=== PATIENT | female | born 1960 | race Two or more races ===

== ENCOUNTER 2024-06-26 02:30 | Inpatient (IN) | payer MEDICAID, OTHER ==
[~2024-06-26] VITALS: Ht 160 cm; Wt 24.4 kg
--- NOTE | 2024-06-26 03:04 | ED.PDOC ---
GI ASSESSMENT HPI Comments 63-year-old female with a history of gastric bypass brought in by EMS presents with a chief complaint of abdominal pain with associated nausea. Patient states that her abdominal pain is localized to her epigastric region, radiates to her backside, describes as sharp, and rates her pain a 10/10. Patient mentions that onset of symptoms began at 0100 this morning. Patient was given 100mcg Fentanyl and 4mg Zofran. Patient reports that after the Fentanyl, her pain went down to a 8/10. Chief Complaint: Abdominal Pain Time Seen by MD: 02:52 Reviewed Notes: Medications, Allergies Allergies: Coded Allergies: NO KNOWN ALLERGIES (Unverified , 06/26/24) Home Meds Reported Medications Ferrous Sulfate (Ferosul) 325 Mg Tab, 1 TAB PO DAILY 06/26/24 Bupropion Hcl (Bupropion Hcl Xl) 300 Mg Tab, 1 TAB PO DAILY 06/26/24 Venlafaxine Hcl (Venlafaxine Hcl Er) 75 Mg Cap, 1 CAP PO DAILY 06/26/24 Information Source: Patient, Emergency Med Personnel Mode of Arrival: EMS Timing: Hours Duration: Since onset Prehospital treatment: Data Specialist, Oxygen, Treatment (100mcg Fentanyl; 4mg Zofran) Quality: Sharp Vomitus: None Stool: Normal Severity: Moderate Recent: None Recent Hx of: None Pain Location: Epigastric Associated sign and symptoms: Nausea, Abdominal Pain Vital Signs Vital Signs Date Time Temp Pulse Resp B/P (MAP) Pulse Ox O2 Delivery O2 Flow Rate FiO2 06/26/24 06:18 73 27 112/62 (79) 100 06/26/24 04:04 98.9 98.9 Physical Exam General: Awake, alert and oriented. No acute distress. Skin: Skin in warm, dry and intact. Appropriate color for ethnicity. HEENT: The head is normocephalic and atraumatic. Conjunctivae are clear without exudates or hemorrhage. Sclera is non-icteric. EOM are intact. No signs of nystagmus. Eyelids are normal in appearance without swelling or lesions. Oral mucosa is pink and moist Neck: The neck is supple with normal range of motion. No JVD. Cardiac: Heart rate and rhythm are normal. No murmurs, gallops, or rubs are auscultated. Respiratory: No signs of respiratory distress. Lung sounds are clear in all lobes bilaterally without rales, rhonchi, or wheezes. Abdominal: Abdomen is soft, epigastric and right upper quadrant without distention. Positive voluntary guarding. Bowel sounds are present and normoactive in all four quadrants. Extremities: Upper and lower extremities are atraumatic in appearance without deformity or edema. Neurological: The patient is awake, alert and oriented to person, place, and time with normal speech. Speech is clear. There is no facial asymmetry. Review of Systems: REVIEW OF SYSTEMS: No fever, no chills, or fatigue HEENT: No sore throat, no earache, no congestion, no neck pain. Cardiac: Positive chest pain. No palpitations. Lungs: Positive shortness of breath, no cough. GI: Positive nausea, no vomiting, no diarrhea, no constipation, positive abdominal pain : No dysuria, frequency, or urgency. No hematuria. Musculoskeletal: No joint pain , no joint swelling, no extremity edema. Skin: No rash, no itching. Neuro: No headache, no dizziness, no weakness Past Medical History PAST MEDICAL HISTORY: Denies Surgical History: Cholecystectomy Surgical History (Other): Gastric Bypass MANAGER EMERGENCY DEPARTMENT History: Denies all MANAGER EMERGENCY DEPARTMENT Hx Family History Family History: Reviewed,noncontributory to illness Social History Smoker: Non-Smoker Alcohol: Denies ETOH Use Drugs: Denies Drug Use Lives In: Home Was a procedure done? Was a procedure done?: No GI differential Dx Differential Diagnosis: Other Other Differential Diagnosis Differential diagnoses considered include: Abdominal aortic aneurysm, MS, esophageal rupture, intestinal obstruction, mesenteric ischemia, perforated viscus or solid organ rupture, CHF with hepatomegaly, pneumonia, abscess, appendicitis, biliary disease, diverticulitis, gastritis, gastroenteritis, hepatitis, hernia, inflammatory bowel disease, pancreatitis, peptic ulcer disease, urinary tract infection, ureteral colic, constipation, GERD, irritable syndrome, abdominal wall pain, nonspecific abdominal pain, herpes zoster. X-Ray, Labs, Meds, VS Vital Signs Date Time Temp Pulse Resp B/P (MAP) Pulse Ox O2 Delivery O2 Flow Rate FiO2 06/26/24 06:18 73 27 112/62 (79) 100 06/26/24 05:14 72 12 125/72 06/26/24 04:04 98.9 71 17 126/63 (84) 98 98.9 06/26/24 03:32 73 26 126/63 06/26/24 02:39 98.8 107 24 131/69 (89) 98 98.8 06/26/24 02:36 58 Lab Test 06/26/24 04:00 06/26/24 03:05 Range/Units Urine Color Light-yellow Yellow Urine Clarity Clear Clear Urine pH 7.0 5.0-9.0 Urine Specific [place] 1.040 H 1.001-1.035 Urine Protein Negative Negative Urine Ketones 1+ H Negative Urine Blood Negative Negative /uL Urine Nitrite Negative Negative Urine Bilirubin Negative Negative Urine Urobilinogen Normal Negative mg/dL Urine Leukocyte Esterase Negative Negative /uL Urine RBC 2 0 - 4 /hpf Urine Microscopic WBC 1 0-5 /HPF Urine Squamous Epithelial Cells Few <5 /hpf Urine Bacteria None seen None Seen /hpf Urine Mucus Few None Seen Urine Glucose Normal Normal mg/dL White Blood Count 5.3 4.4-10.8 10^3/uL Red Blood Count 4.07 4.0-5.20 10^6/uL Hemoglobin 10.4 L 12.2-16.2 g/dL Hematocrit 32.3 L 36.0-46.0 % Mean Corpuscular Volume 79.4 L 80.0-100.0 fL Mean Corpuscular Hemoglobin 25.6 L 28.0-32.0 pg Mean Corpuscular Hemoglobin Concent 32.2 32.0-36.0 g/dL Red Cell Distribution Width 24.7 H 11.8-14.3 % Platelet Count 307 140-450 10^3/uL Mean Platelet Volume 6.7 L 6.9-10.8 fL Neutrophils (%) (Auto) 61.2 37.0-80.0 % Lymphocytes (%) (Auto) 30.1 10.0-50.0 % Monocytes (%) (Auto) 6.5 0.0-12.0 % Eosinophils (%) (Auto) 1.7 0.0-7.0 % Basophils (%) (Auto) 0.5 0.0-2.0 % Neutrophils # (Auto) 3.2 1.6-8.6 10 ^3/uL Lymphocytes # (Auto) 1.6 0.4-5.4 10 ^3/uL Monocytes # (Auto) 0.3 0-1.3 10 ^3/uL Eosinophils # (Auto) 0.1 0-0.8 10 ^3/uL Basophils # (Auto) 0 0-0.2 10 ^3/uL Nucleated Red Blood Cells 0.0 % Sodium Level 144 136-145 mmol/L Potassium Level 4.9 3.5-5.1 mmol/L Chloride Level 108 H 98-107 mmol/L Carbon Dioxide Level 29 20-31 mmol/L Anion Gap 7 5-15 Blood Urea Nitrogen 20 9-23 mg/dL Creatinine 0.55 0.550-1.02 mg/dL Glomerular Filtration Rate Calc 104 >90 mL/min BUN/Creatinine Ratio 36.4 H 10.0-20.0 Serum Glucose 186 H 74-106 mg/dL Hemoglobin A1c 5.0 <5.7 % A1C Lactic Acid Level 1.6 0.4-2.0 mmol/L Calcium Level 9.6 8.7-10.4 mg/dL Total Bilirubin 0.3 0.2-1.0 mg/dL Aspartate Amino Transferase (AST) 19 13-40 U/L Alanine Aminotransferase (ALT) 26 7-40 U/L Alkaline Phosphatase 46 46-116 U/L Troponin I High Sensitivity 5 </=34 ng/L Total Protein 6.3 5.7-8.2 g/dL Albumin 4.4 3.2-4.8 g/dL Amylase Level 60 30-118 U/L Lipase 87 H 12-53 U/L Current Medications Medications (Trade) Dose Ordered Sig/Mami Route Start Time Stop Time Status Last Admin Morphine Sulfate 2 mg ONCE ONCE IV 06/26/24 03:00 06/26/24 03:01 DC 06/26/24 03:32 Sodium Chloride 1,000 ml @ 1,000 mls/hr Q1H ONCE IV 06/26/24 04:00 06/26/24 04:59 DC 06/26/24 04:03 Time of 1ST Reevaluation: 03:22 Reevaluation 1ST: Unchanged Patient Education/Counseling: Need For Follow Up Family Education/Counseling: No Family Present Departure 1 Departure Time of Disposition: 06:05 Impression: Primary Impression: Abdominal pain Disposition: ADMITTED INPATIENT Condition: Stable Comments Patient admitted to hospitalist service for further treatment, evaluation and monitoring. Critical Care Note Critical Care Time?: No Stability Stability form required: No Heart Score Heart Score: Heart Score Response (Comments) Value History N/A 0 EKG N/A 0 Age N/A 0 Risk Factors N/A 0 Troponin N/A 0 Total 0 I personally scribed for MARIA DEL ROSARIO FLOWERS MD ([email or web address]) on 06/26/24 at 03:04. Electronically submitted by Dirk Last ([email or web address]). MARIA DEL ROSARIO FLOWERS MD June 26, 2024 03:04
[2024-06-26] MEDS: IOHEXOL 300 MG/ML 100ML BOTTLE IJ ONE (03:17)
[2024-06-26 03:22] LABS: Basophils # (auto) 0 10 ^3/uL (0-0.2); Basophils % (auto) 0.5 % (0.0-2.0); Eosinophils # (auto) 0.1 10 ^3/uL (0-0.8); Eosinophils % (auto) 1.7 % (0.0-7.0); Hematocrit 32.3 % (36.0-46.0); Hemoglobin 10.4 g/dL (12.2-16.2); Lymphocytes # (auto) 1.6 10 ^3/uL (0.4-5.4); Lymphocytes % (auto) 30.1 % (10.0-50.0); Mean Corpuscular Hemoglobin 25.6 pg (28.0-32.0); Mean Corpuscular Hgb Conc. 32.2 g/dL (32.0-36.0); Mean Corpuscular Volume 79.4 fL (80.0-100.0); Monocytes # (auto) 0.3 10 ^3/uL (0-1.3); Monocytes % (auto) 6.5 % (0.0-12.0); Neutrophils # (auto) 3.2 10 ^3/uL (1.6-8.6); Neutrophils % (auto) 61.2 % (37.0-80.0); Platelet Count (auto) 307 10^3/uL (140-450); Red Blood Cells 4.07 10^6/uL (4.0-5.20); Red Cell Distribution Width 24.7 % (11.8-14.3); White Blood Cell 5.3 10^3/uL (4.4-10.8)
[2024-06-26] MEDS: MORPHINE SULFATE INJ 2 MG/ml SYRG IV ONE (03:32)
[2024-06-26 03:33] LABS: Alanine Aminotransferase 26 U/L (7-40); Albumin 4.4 g/dL (3.2-4.8); Alkaline Phosphatase 46 U/L (46-116); Anion Gap 7 (5-15); Aspartate Aminotransferase 19 U/L (13-40); BUN/Creatinine Ratio 36.4 (10.0-20.0); Blood Urea Nitrogen 20 mg/dL (9-23); Calcium 9.6 mg/dL (8.7-10.4); Carbon Dioxide 29 mmol/L (20-31); Potassium 4.9 mmol/L (3.5-5.1); Sodium 144 mmol/L (136-145); Total Protein 6.3 g/dL (5.7-8.2)
[2024-06-26 03:35] LABS: Bilirubin, Total 0.3 mg/dL (0.2-1.0); Chloride 108 mmol/L (98-107); Glucose 186 mg/dL (74-106); Lipase 87 U/L (12-53)
[2024-06-26] MEDS: SODIUM CHLORIDE 0.9% 1,000 ML IV ONE ×2 (04:03→17:59)
--- NOTE | 2024-06-26 05:51 | DVH ---
EXAM: CT Abdomen and Pelvis With Intravenous Contrast CLINICAL INDICATION: Abdominal pain, history gastric bypass TECHNIQUE: Axial computed tomography images of the abdomen and pelvis with intravenous contrast. is CT exam was performed using one or more of the following dose reduction techniques: automated exp osure control, adjustment of the mA and/or kV according to patient size, and/or use of iterative skye nstruction technique. CONTRAST: COMPARISON: None FINDINGS: ARTIFACTS: Motion artifact. LUNG BASES: Unremarkable. No mass. No consolidation. MEDIASTINUM: Small esophageal hiatal hernia. ABDOMEN: LIVER: Fatty infiltration of the liver. GALLBLADDER AND BILE DUCTS: Gallbladder is surgically absent. No ductal dilation. PANCREAS: Unremarkable. No mass. No ductal dilation. SPLEEN: Unremarkable. No splenomegaly. ADRENALS: Unremarkable. No mass. KIDNEYS AND URETERS: Unremarkable. No solid mass. No hydronephrosis. STOMACH AND BOWEL: Fecal retention in the colon consistent with constipation. No obstruction. No mucosal thickening. PELVIS: APPENDIX: No findings to suggest acute appendicitis. BLADDER: Unremarkable. No mass. REPRODUCTIVE: Unremarkable as visualized. ABDOMEN and PELVIS: INTRAPERITONEAL SPACE: Unremarkable. No free air. No significant fluid collection. BONES/JOINTS: No acute fracture. No dislocation. SOFT TISSUES: Unremarkable. VASCULATURE: Unremarkable. No abdominal aortic aneurysm. LYMPH NODES: Unremarkable. No enlarged lymph nodes. OTHER FINDINGS: . . IMPRESSION: 1. Small esophageal hiatal hernia. 2. Fecal retention in the colon consistent with constipation.
--- NOTE | 2024-06-26 07:04 | ECG ---
[facility] Test Date: 2024-06-26 Test Time: 02:36:58 Pat Name: KENNEY PONCE Department: ED Room: 0277 Gender: F [employer]: CAT[place] : 1960 Requested By: MARIA DEL ROSARIO FLOWERS Order Number: [id number] Reading MD: Nathan Cardenas Measurements Intervals [place] Rate: 58 P: 60 [place]: 160 QRS: 23 QRSD: 137 T: 63 QT: 457 QTc: 449 Interpretive Statements Sinus rhythm Nonspecific intraventricular conduction delay Borderline T abnormalities, anterior leads Electronically Signed On 06-27-2024 21:13:19 PDT by Nathan Cadrenas Please click the below link to view image of tracing.
[2024-06-26] MEDS ORDERED: MORPHINE SULFATE INJ 2 MG/ml SYRG IV PRN (07:15)
[2024-06-26] MEDS ORDERED: HYDROcodone-ACET 5/325MG TAB PO PRN (07:15)
[2024-06-26] MEDS ORDERED: DOCUSATE SOD 100 MG CAP PO PRN (07:15)
[2024-06-26] MEDS ORDERED: ONDANSETRON HCL 4 MG/2 ML VIAL IV PRN (07:15)
[2024-06-26] MEDS ORDERED: VENL75CA78 PO (07:27)
[2024-06-26] MEDS ORDERED: BUPR-581 PO (07:27)
[2024-06-26] MEDS ORDERED: FERR325T20 PO (07:27)
[2024-06-26 07:47] LABS: Urine Bacteria None Seen /hpf (None Seen)
--- NOTE | 2024-06-26 08:05 | DVHHP2 ---
History of Present Illness Reason for Visit: Abdominal Pain History of Present Illness Janice Mcknight is a 63-year-old female with past medical history of depression, who came in with complaints of abdominal pain. Patient states she had an episode yesterday of epigastric pain, then it subsided. This morning the pain returned while she was resting in bed. She states the pain was a 10/10 with associated nausea and nothing made it any better prompting her to call EMS. Psych: Depression Past Surgical History: Cholecystectomy, Hysterectomy, Other (Gastric bypass) Smoke: No ALCOHOL: none Drugs: None Lives: with Family Domestic Violence: Neg Review of Systems Constitutional: No: Fever, Chills, Sweats, Weakness, Malaise, Other Eyes: No: Pain, Vision change, Conjunctivae inflammation, Eyelid inflammation, Other, Redness ENT: No: Ear pain, Ear discharge, Nose pain, Nose discharge, Nose congestion, Mouth pain, Mouth swelling, Throat pain, Throat swelling, Other Respiratory: No: Cough, Dry, Shortness of breath, SOB with excertion, Wheezing, Hemoptysis, Pleuritic Pain, Sputum, Wheezing, Other Cardiovascular: No: Chest Pain, Palpitations, Orthopnea, Paroxysmal Noc. Dyspnea, Edema, Lt Headedness, Other Gastrointestinal: Nausea, Abdominal Pain; No: Vomiting, Diarrhea, Constipation, Melena, Hematochezia, Other Genitourinary: No Dysuria, No Frequency, No Incontinence, No Hematuria, No Retention, No Other Musculoskeletal: No: other, neck pain, shoulder pain, arm pain, back pain, hand pain, leg pain, foot pain Skin: No: Rash, Lesions, Jaundice, Bruising, Other Neurological: No: Weakness, Numbness, Incoordination, Change in speech, Confusion, Seizures, Other Allergies: Coded Allergies: NO KNOWN ALLERGIES (Unverified , 06/26/24) Medications Current Medications Medications Dose Ordered Sig/Mami Route Start Time Stop Time Status Last Admin Dose Admin Acetaminophen/ Hydrocodone Bitart 1 tab Q4HP PRN PO 06/26/24 07:15 UNV Ondansetron HCl 4 mg Q4HP PRN IV 06/26/24 07:15 UNV Docusate Sodium 100 mg BIDPRN PRN PO 06/26/24 07:15 UNV Acetaminophen 650 mg Q6HP PRN PO 06/26/24 07:15 UNV Morphine Sulfate 2 mg Q4HPRN PRN IV 06/26/24 07:15 UNV Sodium Chloride 1,000 ml @ 100 mls/hr Q10H IV 06/26/24 07:30 UNV Patient Own Medication 1 tab DAILY PO 06/26/24 10:00 UNV Patient Own Medication 1 tab DAILY PO 06/26/24 10:00 UNV Patient Own Medication 1 cap DAILY PO 06/26/24 10:00 UNV Exam Vital Signs Vital Signs Date Time Temp Pulse Resp B/P (MAP) Pulse Ox O2 Delivery O2 Flow Rate FiO2 06/26/24 06:18 73 27 112/62 (79) 100 06/26/24 04:04 98.9 98.9 General Appearance: Alert, Oriented X3, Cooperative, mild distress HEENT: Atraumatic, PERRLA Respiratory: Clear to auscultation, Normal air movement Cardiovascular: Regular rate, Normal S1, Normal S2 Abdominal: Normal bowel sounds, Soft, No hepatospenomegaly, Other (tenderness on palpitation) Extremities: No clubbing, No cyanosis, No edema, Normal pulses Skin: No rashes, No breakdown, No significant lesion Neuro: Normal gait, Normal speech, Strength at 5/5 X4 ext Psych/Mental Status: Mental status NL, Mood NL Labs/Xrays Labs Test 06/26/24 03:05 Range/Units White Blood Count 5.3 4.4-10.8 10^3/uL Red Blood Count 4.07 4.0-5.20 10^6/uL Hemoglobin 10.4 L 12.2-16.2 g/dL Hematocrit 32.3 L 36.0-46.0 % Mean Corpuscular Volume 79.4 L 80.0-100.0 fL Mean Corpuscular Hemoglobin 25.6 L 28.0-32.0 pg Mean Corpuscular Hemoglobin Concent 32.2 32.0-36.0 g/dL Red Cell Distribution Width 24.7 H 11.8-14.3 % Platelet Count 307 140-450 10^3/uL Mean Platelet Volume 6.7 L 6.9-10.8 fL Neutrophils (%) (Auto) 61.2 37.0-80.0 % Lymphocytes (%) (Auto) 30.1 10.0-50.0 % Monocytes (%) (Auto) 6.5 0.0-12.0 % Eosinophils (%) (Auto) 1.7 0.0-7.0 % Basophils (%) (Auto) 0.5 0.0-2.0 % Neutrophils # (Auto) 3.2 1.6-8.6 10 ^3/uL Lymphocytes # (Auto) 1.6 0.4-5.4 10 ^3/uL Monocytes # (Auto) 0.3 0-1.3 10 ^3/uL Eosinophils # (Auto) 0.1 0-0.8 10 ^3/uL Basophils # (Auto) 0 0-0.2 10 ^3/uL Nucleated Red Blood Cells 0.0 % Sodium Level 144 136-145 mmol/L Potassium Level 4.9 3.5-5.1 mmol/L Chloride Level 108 H 98-107 mmol/L Carbon Dioxide Level 29 20-31 mmol/L Anion Gap 7 5-15 Blood Urea Nitrogen 20 9-23 mg/dL Creatinine 0.55 0.550-1.02 mg/dL Glomerular Filtration Rate Calc 104 >90 mL/min BUN/Creatinine Ratio 36.4 H 10.0-20.0 Serum Glucose 186 H 74-106 mg/dL Lactic Acid Level 1.6 0.4-2.0 mmol/L Calcium Level 9.6 8.7-10.4 mg/dL Total Bilirubin 0.3 0.2-1.0 mg/dL Aspartate Amino Transferase (AST) 19 13-40 U/L Alanine Aminotransferase (ALT) 26 7-40 U/L Alkaline Phosphatase 46 46-116 U/L Troponin I High Sensitivity 5 </=34 ng/L Total Protein 6.3 5.7-8.2 g/dL Albumin 4.4 3.2-4.8 g/dL Amylase Level 60 30-118 U/L Lipase 87 H 12-53 U/L EXAM: CT Abdomen and Pelvis With Intravenous Contrast FINDINGS: ARTIFACTS: Motion artifact. LUNG BASES: Unremarkable. No mass. No consolidation. MEDIASTINUM: Small esophageal hiatal hernia. ABDOMEN: LIVER: Fatty infiltration of the liver. GALLBLADDER AND BILE DUCTS: Gallbladder is surgically absent. No ductal dilation. PANCREAS: Unremarkable. No mass. No ductal dilation. SPLEEN: Unremarkable. No splenomegaly. ADRENALS: Unremarkable. No mass. KIDNEYS AND URETERS: Unremarkable. No solid mass. No hydronephrosis. STOMACH AND BOWEL: Fecal retention in the colon consistent with constipation. No obstruction. No mucosal thickening. PELVIS: APPENDIX: No findings to suggest acute appendicitis. BLADDER: Unremarkable. No mass. REPRODUCTIVE: Unremarkable as visualized. ABDOMEN and PELVIS: INTRAPERITONEAL SPACE: Unremarkable. No free air. No significant fluid collection. BONES/JOINTS: No acute fracture. No dislocation. SOFT TISSUES: Unremarkable. VASCULATURE: Unremarkable. No abdominal aortic aneurysm. LYMPH NODES: Unremarkable. No enlarged lymph nodes. OTHER FINDINGS: . . IMPRESSION: 1. Small esophageal hiatal hernia. 2. Fecal retention in the colon consistent with constipation. Assessment/Plan Assessment/Plan Assessment: Pancreatitis, Hiatal hernia, Constipation, Hyperglycemia, Anemia, Depression, Plan: Admit to Med-Surg, IV hydration, Pain management, NPO except ice chips, Home medications reconciled, Plan discussed with: Patient, Daughter My Orders Orders - ARLENE CASTILLO Procedure Category Date Status Time Admit ADMIT 06/26/24 Transmitted 07:01 Code Status CODE 06/26/24 Transmitted 07:01 Hydrocodone-Acet PHA 06/26/24 Logged 5/325mg Tab ([place] 07:15 Ondansetron Hcl PHA 06/26/24 Logged (Zofran) 07:15 Docusate Sodium PHA 06/26/24 Logged Capsule ([place] 07:15 Complete Blood Count LAB 06/27/24 Verified 04:00 Comprehensive LAB 06/27/24 Verified Metabolic Panel 04:00 Npo (Nothing By DIET 06/26/24 Transmitted Mouth) Diet Breakfast Condition: Serious ARIANA 06/26/24 In Process 07:01 Acetaminophen Tablet PHA 06/26/24 Logged (Tylenol Tablet) 07:15 Morphine Sulfate PHA 06/26/24 Logged Injection 07:15 Sodium Chloride 0.9% PHA 06/26/24 Logged 07:30 Sodium Chloride 0.9% PHA 06/26/24 Logged 07:30 (Nf) Bupropion Hcl PHA 06/26/24 Logged (Bupropion Hcl Xl) 10:00 (Nf) Ferrous Sulfate PHA 06/26/24 Logged (Ferosul) 10:00 (Nf) Venlafaxine Hcl PHA 06/26/24 Logged (Venlafaxine Hcl Er 10:00 Date of Service: June 26, 2024 Billing Provider: SCHWING,ARLENE R LIDAR SCIENTIST Common Visit Codes: [id number] INP/OBS CARE (MOD) ARLENE CASTILLO LIDAR SCIENTIST June 26, 2024 08:05
[2024-06-26 08:10] LABS: Urine Blood Negative /uL (Negative); Urine Clarity Clear (Clear); Urine Color Light-Yellow (Yellow); Urine Mucus FEW (None Seen); Urine Protein, UAD Negative (Negative); Urine Squamous Epithelial Cell FEW /hpf (<5); Urine Urobilinogen Normal (Negative); Urine WBC 1 /HPF (0-5)
[2024-06-26 09:27] VITALS: PULSE 75; RESP 18; O2SAT 95
[2024-06-26] MEDS ORDERED: LACTULOSE 20Gm/30ML SOLN PO PRN (09:45)
[2024-06-26 10:00] VITALS: BP 134/60; PULSE 75; RESP 18; TEMP 98; O2SAT 95
[2024-06-26] MEDS: BUPROPION HCL 300 MG PO SCH (10:00)
[2024-06-26] MEDS: FERROUS SULFATE 325mg EC TAB PO SCH (10:12)
[2024-06-26] MEDS: ACETAMINOPHEN 325 MG TAB PO PRN (10:12)
[2024-06-26] MEDS: PANTOPRAZOLE 40 MG/10 ML VIAL INJ IV ONE (11:30)
[2024-06-26 13:00] VITALS: BP 127/57; PULSE 84; RESP 18; TEMP 98; O2SAT 96
--- NOTE | 2024-06-26 13:28 | DVHPN2 ---
Subjective 63-year-old female past medical history of depression came with abdominal pain since this morning with some nausea and vomiting Changes from previous H/P or p: Changes Eyes: No Pain, No Vision change, No Conjunctivae inflammation, No Eyelid inflammation, No Other, No Redness ENT: No Ear pain, No Ear discharge, No Nose pain, No Nose discharge, No Nose congestion, No Mouth pain, No Mouth swelling, No Throat pain, No Throat swelling, No Other Cardiovascular: No Chest Pain, No Palpitations, No Orthopnea, No Paroxysmal Noc. Dyspnea, No Edema, No Lt Headedness, No Other Respiratory: No Cough, No Dry, No Shortness of breath, No SOB with excertion, No Wheezing, No Hemoptysis, No Pleuritic Pain, No Sputum, No Other Gastrointestinal: Nausea; No Vomiting; Abdominal Pain; No Diarrhea, No Constipation, No Melena, No Hematochezia, No Other Genitourinary: No Dysuria, No Frequency, No Incontinence, No Hematuria, No Retention, No Other Musculoskeletal: No other, No neck pain, No shoulder pain, No arm pain, No back pain, No hand pain, No leg pain, No foot pain Skin: No Rash, No Lesions, No Jaundice, No Bruising, No Other Objective Vitals Vital Signs Date Time Temp Pulse Resp B/P (MAP) Pulse Ox O2 Delivery O2 Flow Rate FiO2 06/26/24 10:12 98.0 06/26/24 09:27 75 18 95 Room Air* 0 21 06/26/24 08:00 131/57 (81) Intake/Output Intake and Output 06/26/24 07:00 Intake Total 1000 ml Balance 1000 ml Intake IV Total 1000 ml General Appearance: Alert, Oriented X3, Cooperative Lungs: Clear to auscultation, Normal air movement Cardiovascular: Regular rate, Normal S1, Normal S2, No murmurs Abdomen: Normal bowel sounds, Soft, No tenderness Extremities: No edema Medications Current Medications Medications Dose Ordered Sig/Mami Route Start Time Stop Time Status Last Admin Dose Admin Acetaminophen/ Hydrocodone Bitart 1 tab Q4HP PRN PO 06/26/24 07:15 Ondansetron HCl 4 mg Q4HP PRN IV 06/26/24 07:15 Docusate Sodium 100 mg BIDPRN PRN PO 06/26/24 07:15 Acetaminophen 650 mg Q6HP PRN PO 06/26/24 07:15 06/26/24 10:12 650 MG Morphine Sulfate 2 mg Q4HPRN PRN IV 06/26/24 07:15 Sodium Chloride 1,000 ml @ 100 mls/hr Q10H IV 06/26/24 07:30 Patient Own Medication 1 tab DAILY PO 06/26/24 10:00 Ferrous Sulfate 325 mg DAILY@0800 PO 06/26/24 08:00 06/26/24 10:12 325 MG Venlafaxine HCl 75 mg HS PO 06/26/24 22:00 Lactulose 30 ml DAILYPRN PRN PO 06/26/24 09:45 Pantoprazole Sodium 40 mg DAILY IV 06/27/24 10:00 Laboratory Results Laboratory Tests 06/26/24 03:05 Chemistry Test 06/26/24 03:05 Albumin 4.4 g/dL (3.2-4.8) Calcium Level 9.6 mg/dL (8.7-10.4) Total Protein 6.3 g/dL (5.7-8.2) Lipid panel Test 06/26/24 03:05 Lipase 87 U/L (12-53) H LFT Test 06/26/24 03:05 Alanine Aminotransferase (ALT) 26 U/L (7-40) Alkaline Phosphatase 46 U/L (46-116) Aspartate Amino Transferase (AST) 19 U/L (13-40) Total Bilirubin 0.3 mg/dL (0.2-1.0) HgA1c, TSH Test 06/26/24 03:05 Hemoglobin A1c 5.0 % A1C (<5.7) Urinalysis Test 06/26/24 04:00 Urine Color Light-yellow (Yellow) Urine Clarity Clear (Clear) Urine pH 7.0 (5.0-9.0) Urine Specific [place] 1.040 (1.001-1.035) Urine Protein Negative (Negative) Urine Ketones 1+ (Negative) H Urine Blood Negative /uL (Negative) Urine Nitrite Negative (Negative) Urine Bilirubin Negative (Negative) Urine Urobilinogen Normal mg/dL (Negative) Urine Leukocyte Esterase Negative /uL (Negative) Urine RBC 2 /hpf (0 - 4) Urine Microscopic WBC 1 /HPF (0-5) Urine Squamous Epithelial Cells Few /hpf (<5) Urine Bacteria None seen /hpf (None Seen) Urine Mucus Few (None Seen) Urine Glucose Normal mg/dL (Normal) Assessment/Plan Assessment/Plan Abdominal pain Most likely GERD or gastritis ? Pancreatitis Constipation History of depression Hiatal hernia Plan Start clear liquid diet Protonix IV IV fluids Monitor closely in the hospital Full code Advance directives discussed for 17 minutes Plan discussed with: Patient My Orders Orders - MICAH VIEYRA MD Procedure Category Date Status Time Clear Liq Diet DIET 06/26/24 Transmitted Lunch Pantoprazole PHA 06/27/24 In Process (Protonix) 10:00 Date of Service: June 26, 2024 Billing Provider: MICAH VIEYRA MD Common Visit Codes: [id number] INP/OBS CARE(HIGH) Secondary Visit Codes: [id number] CARE PLAN 30 MINUTES MICAH VIEYRA MD June 26, 2024 13:28
[2024-06-26 17:00] VITALS: BP 119/56; PULSE 85; RESP 20; TEMP 99.1; O2SAT 94
[2024-06-26] MEDS: SODIUM CHLORIDE 0.9% 1,000 ML IV SCH (17:30)
[2024-06-26 20:00] VITALS: PULSE 87; RESP 17; O2SAT 95
[2024-06-26 21:00] VITALS: BP 113/49; PULSE 87; RESP 17; TEMP 98.5; O2SAT 95
[2024-06-26] MEDS: VENLAFAXINE HCL 37.5mg XR cap PO SCH (22:00)
[2024-06-27 05:00] VITALS: BP 106/41; PULSE 68; RESP 17; TEMP 98.6; O2SAT 98
[2024-06-27 06:14] LABS: Basophils # (auto) 0 10 ^3/uL (0-0.2); Eosinophils # (auto) 0 10 ^3/uL (0-0.8); Hematocrit 27.1 % (36.0-46.0); Hemoglobin 8.9 g/dL (12.2-16.2); Mean Corpuscular Hemoglobin 26.1 pg (28.0-32.0); Monocytes # (auto) 0.3 10 ^3/uL (0-1.3); Red Blood Cells 3.42 10^6/uL (4.0-5.20)
[2024-06-27 06:19] LABS: Basophils % (auto) 0.5 % (0.0-2.0); Eosinophils % (auto) 0.8 % (0.0-7.0); Lymphocytes # (auto) 0.9 10 ^3/uL (0.4-5.4); Lymphocytes % (auto) 24.6 % (10.0-50.0); Mean Corpuscular Volume 79.2 fL (80.0-100.0); Neutrophils # (auto) 2.5 10 ^3/uL (1.6-8.6); Neutrophils % (auto) 65.1 % (37.0-80.0); Nucleated Red Blood Cells % 0.3 %; Platelet Count (auto) 219 10^3/uL (140-450); Red Cell Distribution Width 24.8 % (11.8-14.3); White Blood Cell 3.9 10^3/uL (4.4-10.8)
[2024-06-27 06:29] LABS: Alanine Aminotransferase 22 U/L (7-40); Albumin 3.5 g/dL (3.2-4.8); Anion Gap 8 (5-15); Aspartate Aminotransferase 19 U/L (13-40); Blood Urea Nitrogen 10 mg/dL (9-23); Carbon Dioxide 27 mmol/L (20-31); Glucose 83 mg/dL (74-106); Lipase 38 U/L (12-53); Potassium 3.8 mmol/L (3.5-5.1); Sodium 145 mmol/L (136-145)
[2024-06-27 06:30] LABS: Bilirubin, Total 0.4 mg/dL (0.2-1.0)
[2024-06-27 06:37] LABS: Alkaline Phosphatase 35 U/L (46-116); Calcium 8.6 mg/dL (8.7-10.4); Chloride 110 mmol/L (98-107); Total Protein 5.2 g/dL (5.7-8.2)
[2024-06-27 08:10] VITALS: RESP 16; O2SAT 95
[2024-06-27 09:00] VITALS: BP 132/60; PULSE 67; RESP 18; TEMP 99.6; O2SAT 97
[2024-06-27] MEDS: PANTOPRAZOLE 40 MG/10 ML VIAL INJ IV SCH (09:23)
[2024-06-27] MEDS ORDERED: PANT40TA2 PO (11:59)
--- NOTE | 2024-06-27 12:01 | DVHDS2 ---
Discharge Summary Date of Admission June 26, 2024 at 07:01 Date of Discharge: June 27, 2024 Labs/Diagnostic Data: Laboratory Results Test 06/27/24 05:05 06/26/24 04:00 06/26/24 03:05 White Blood Count 3.9 10^3/uL (4.4-10.8) Red Blood Count 3.42 10^6/uL (4.0-5.20) Hemoglobin 8.9 g/dL (12.2-16.2) Hematocrit 27.1 % (36.0-46.0) Mean Corpuscular Volume 79.2 fL (80.0-100.0) Mean Corpuscular Hemoglobin 26.1 pg (28.0-32.0) Mean Corpuscular Hemoglobin Concent 33.0 g/dL (32.0-36.0) Red Cell Distribution Width 24.8 % (11.8-14.3) Platelet Count 219 10^3/uL (140-450) Mean Platelet Volume 7.0 fL (6.9-10.8) Neutrophils (%) (Auto) 65.1 % (37.0-80.0) Lymphocytes (%) (Auto) 24.6 % (10.0-50.0) Monocytes (%) (Auto) 9.0 % (0.0-12.0) Eosinophils (%) (Auto) 0.8 % (0.0-7.0) Basophils (%) (Auto) 0.5 % (0.0-2.0) Neutrophils # (Auto) 2.5 10 ^3/uL (1.6-8.6) Lymphocytes # (Auto) 0.9 10 ^3/uL (0.4-5.4) Monocytes # (Auto) 0.3 10 ^3/uL (0-1.3) Eosinophils # (Auto) 0 10 ^3/uL (0-0.8) Basophils # (Auto) 0 10 ^3/uL (0-0.2) Nucleated Red Blood Cells 0.3 % Sodium Level 145 mmol/L (136-145) Potassium Level 3.8 mmol/L (3.5-5.1) Chloride Level 110 mmol/L (98-107) Carbon Dioxide Level 27 mmol/L (20-31) Anion Gap 8 (5-15) Blood Urea Nitrogen 10 mg/dL (9-23) Creatinine 0.40 mg/dL (0.550-1.02) Glomerular Filtration Rate Calc 113 mL/min (>90) BUN/Creatinine Ratio 25.0 (10.0-20.0) Serum Glucose 83 mg/dL (74-106) Calcium Level 8.6 mg/dL (8.7-10.4) Total Bilirubin 0.4 mg/dL (0.2-1.0) Aspartate Amino Transferase (AST) 19 U/L (13-40) Alanine Aminotransferase (ALT) 22 U/L (7-40) Alkaline Phosphatase 35 U/L (46-116) Total Protein 5.2 g/dL (5.7-8.2) Albumin 3.5 g/dL (3.2-4.8) Lipase 38 U/L (12-53) Urine Color Light-yellow (Yellow) Urine Clarity Clear (Clear) Urine pH 7.0 (5.0-9.0) Urine Specific [place] 1.040 (1.001-1.035) Urine Protein Negative (Negative) Urine Ketones 1+ (Negative) Urine Blood Negative /uL (Negative) Urine Nitrite Negative (Negative) Urine Bilirubin Negative (Negative) Urine Urobilinogen Normal mg/dL (Negative) Urine Leukocyte Esterase Negative /uL (Negative) Urine RBC 2 /hpf (0 - 4) Urine Microscopic WBC 1 /HPF (0-5) Urine Squamous Epithelial Cells Few /hpf (<5) Urine Bacteria None seen /hpf (None Seen) Urine Mucus Few (None Seen) Urine Glucose Normal mg/dL (Normal) Hemoglobin A1c 5.0 % A1C (<5.7) Lactic Acid Level 1.6 mmol/L (0.4-2.0) Troponin I High Sensitivity 5 ng/L (</=34) Amylase Level 60 U/L (30-118) Other Laboratory Tests 06/27/24 05:05 Brief Hx & Hospital Course: Final diagnoses: Abdominal pain due to GERD GERD Constipation Depression Hiatal hernia 63-year-old female with a history of gastric bypass surgery in the past came with a chief chief complaint of abdominal pain which was in the epigastric area She was suspected of having pancreatitis however her lipase was with a normal She was treated with a PPIs and she improved quickly Overnight she is doing well and asymptomatic now and therefore she can be discharged home on Protonix 40 mg p.o. daily and follow up as an outpatient. She is scheduled to have a referral to GI for upper and lower endoscopies as an outpatient so she should follow up as scheduled Condition at Discharge: Stable Final Diagnosis/Problems List Abdominal pain most likely due to GERD GERD Discharge Disposition: Home SNF Discharge Will this Physician continue t: No Discharge Instruct/Medications Diet: Cardiac 2g Na,low cholest Activity: No Restrictions, As Tolerated Follow Up/Referral: PCP as soon as possible Medications: Protonix 40 mg p.o. daily Discharge Statement: "Patient was advised to return to the ER or call 911 if any headaches, dizziness, shortness of breath, chest pain, abdominal pain, bleeding, fevers, or worsening of medical condition. Patient was counseled about treatment plan, medications, possible side effects, patientverbalized understanding. All questions were answered to the best of my ability. This discharge took greater then 30 minutes in planning, reviewing documentation, counseling the patient, and discussing with other team members." ASSESSMENT ASSESSMENT Assessment Abdominal pain most likely due to GERD GERD Date of Service: June 27, 2024 Billing Provider: MICAH VIEYRA MD Common Visit Codes: 39452-SFK/OBS DISCH DAY >30min MICAH VIEYRA MD June 27, 2024 12:01
[2024-06-27 12:30] VITALS: BP 149/56; PULSE 66; RESP 17; TEMP 98.7; O2SAT 93
== END 2024-06-27 14:39 | disposition home or self-care (01) | DRG 243 ==
LOC: EDBD 02:30 → ER 02:30 → OVERFLOW 07:01 → WEST WING 09:07
PROVIDERS: ADMIT Internal Medicine Geriatric Medicine; ATTEND Internal Medicine Geriatric Medicine
DX: K21.9 Gastro-esophageal reflux disease without esophagitis (principal); R65.10 Systemic inflammatory response syndrome (SIRS) of non-infectious origin without acute organ dysfunction; F32.A Depression, unspecified; D64.9 Anemia, unspecified; K44.9 Diaphragmatic hernia without obstruction or gangrene; K59.00 Constipation, unspecified; R73.9 Hyperglycemia, unspecified; Z90.49 Acquired absence of other specified parts of digestive tract; Z98.84 Bariatric surgery status; Z90.710 Acquired absence of both cervix and uterus; Z79.899 Other long term (current) drug therapy
CPT/HCPCS: 36415; 74177; 80053; 81001; 82150; 83036; 83605; 83690; 84484; 85025; 93005; G0378; J2470